=== PATIENT | female | born 1960 | race Two or more races ===

== ENCOUNTER 2017-09-21 21:40 | Inpatient (IN) | payer MEDICARE ==
[~2017-09-21] VITALS: Ht 160 cm; Wt 95.3 kg
[2017-09-21] MEDS ORDERED: MAGNESIUM HYDROXIDE 30 ML UDC PO PRN (23:00)
[2017-09-21] MEDS ORDERED: ACETAMINOPHEN 325 MG TABLET PO PRN (23:00)
[2017-09-21] MEDS ORDERED: MAG HYDROX/AL HYDROX/SIMETH 30 ML UDC PO PRN (23:00)
[2017-09-21] MEDS ORDERED: LORAZEPAM 0.5 MG TABLET PO PRN (23:00)
[2017-09-21] MEDS ORDERED: SERT100T12 (23:27)
[2017-09-21] MEDS ORDERED: BENZ2TAB7 (23:27)
[2017-09-21] MEDS ORDERED: MELO-105 (23:27)
[2017-09-21] MEDS ORDERED: PROP10TA68 (23:27)
[2017-09-21] MEDS ORDERED: HALO5TAB8 (23:27)
[2017-09-21] MEDS ORDERED: BENZ0.5T43 (23:27)
[2017-09-21] MEDS ORDERED: LURA40TA PO (23:31)
[2017-09-21] MEDS: TEMAZEPAM 7.5 MG CAPSULE PO PRN (23:43)
[2017-09-22 00:07] VITALS: BP 140/78
--- NOTE | 2017-09-22 00:23 | NUR ---
ADMISSION NOTES ADMITTED THIS 57 Y/O FEMALE PATIENT ADMIT FROM [facility]/ , PT. INTIALLY CAME FROM HOME. PT IS ON 5150 HOLD FOR GD ,DTS , PER HOLD PT. ENDORSE SUCIDIAL IDEATION BY OVERDOSEING ON HER PILLS OR RUNNING INTO TRAFFIC, UPON FACE TO FACE ASSESSMENT PATIENT IS A&O X3,DEPRESSIVE,CALM COOPERTIVE AT THIS TIME , DENIES SI/ HI AT THIS TIME V/S WNL, NO ACUTE DISTRESS NOTED, HX OF BIPOLAR DISORDER ,ANXIETY, SCHIZOPHRENIA , DEPRESSION , MD AWARE AND NOTIFIED OF THE ADMISSION, SKIN INTACT, ENCOURAGED PT. VERBALIZED ANY FEELING CONCERN TO STAFF, ORIENT TO UNIT POLICY, WILL CONTINUE TO MONITOR FOR Q15 SAFETY AND BEHAVIOR.
[2017-09-22 06:50] LABS: ALBUMIN 2.9 g/dL (3.4-5.0); BILIRUBIN,TOTAL 0.7 mg/dL (0.2-1.0); CALCIUM, SERUM 8.8 mg/dL (8.5-10.1); CREATININE 0.5 mg/dL (0.6-1.3); POTASSIUM 3.9 mmol/L (3.5-5.1)
[2017-09-22 07:09] LABS: CHOLESTEROL 147 mg/dL (<200); HDL CHOLESTEROL 52 mg/dL (40-60); LDL 86 mg/dL (0-99); TRIGLYCERIDES 75 mg/dL (30-150)
[2017-09-22 08:00] VITALS: BP 104/54
--- NOTE | 2017-09-22 14:30 | NUR ---
GPS/RN-NOTES IRMA FRANK SEEN THE PATIENT TODAY AND MADE AWARE TO RECONCILE THE MEDICATIONS.
[2017-09-22 16:00] VITALS: BP 115/63
[2017-09-22 20:05] VITALS: BP 119/67
[2017-09-22] MEDS: TRAZODONE 50 MG TABLET PO SCH (21:18)
[2017-09-23 08:00] VITALS: BP 126/85
[2017-09-23] MEDS: PANTOPRAZOLE 40 MG TABLET.DR PO SCH (08:04)
[2017-09-23] MEDS: BENZTROPINE MESYLATE (1 MG) 1 MG TABLET PO SCH ×2 (08:36→16:12)
[2017-09-23] MEDS: MELOXICAM 7.5 MG TABLET PO SCH (08:36)
[2017-09-23] MEDS: HALOPERIDOL 5 MG TABLET PO SCH ×2 (08:36→16:12)
[2017-09-23] MEDS: SERTRALINE HCL 50 MG TABLET PO SCH (08:36)
[2017-09-23] MEDS: PROPRANOLOL HCL 10 MG TABLET PO SCH ×2 (08:37→16:12)
--- NOTE | 2017-09-23 12:08 | NUR ---
INITIAL DISCHARGE PLAN: Pt will return home to [address] [place] [address] . JOSE F contacted pts Akil [phone] who confirmed. JOSE F will help form a safe and proper discharge in collaboration with .
[2017-09-23 16:05] VITALS: BP 104/75
[2017-09-23 20:00] VITALS: BP 126/69
[2017-09-23] MEDS: TRAZODONE 50 MG TABLET PO SCH (21:41)
[2017-09-23] MEDS: TEMAZEPAM 7.5 MG CAPSULE PO PRN (21:41)
[2017-09-24 08:11] VITALS: BP 125/84
[2017-09-24] MEDS: MELOXICAM 7.5 MG TABLET PO SCH (08:38)
[2017-09-24] MEDS: BENZTROPINE MESYLATE (1 MG) 1 MG TABLET PO SCH (08:38)
[2017-09-24] MEDS: HALOPERIDOL 5 MG TABLET PO SCH (08:38)
[2017-09-24 08:39] VITALS: BP 125/84
[2017-09-24] MEDS: PROPRANOLOL HCL 10 MG TABLET PO SCH (08:39)
[2017-09-24] MEDS: PANTOPRAZOLE 40 MG TABLET.DR PO SCH (08:39)
[2017-09-24] MEDS: SERTRALINE HCL 50 MG TABLET PO SCH (08:39)
--- NOTE | 2017-09-24 09:28 | NUR ---
RN-CO: DR LEE ORDERED TO DISCONTINUE HOLD AND DISCHARGE PATIENT TODAY.
--- NOTE | 2017-09-24 14:30 | NUR ---
GPS/RN NO SI OR HI AT THE TIME OF D/C. BELONGINGS/VALUABLES RETURNED AND SIGNED FOR. SKIN CLEAR ON D/C. EXIT CARE INSTRUCTIONS, PRESCRIPTIONS GIVEN UND UNDERSTOOD.PT IS AMBULATORY, TAXI ARRANGED BY JOSE F. PT HAS KEYS/ACCESS TO HER HOME. PT ACCOMPANIED TO THE LOBBY BY THE DIRECTOR OF INDIVIDUAL GIVING.
--- NOTE | 2017-09-24 15:14 | NUR ---
DISCHARGE NOTE: Pt was discharged at 2:30pm home to [address] [place], [place] [id number] [facility] [address]. [phone]. Pt will be transported home via [employer] self pay. Pts Akil [phone] has been notified and agrees to discharge plan. Pts appeared in a happy mood with congruent affect. Pt was calm and cooperative and denied suicidal/homicidal ideations and denied visual/auditory hallucinations. SW scheduled follow up appointment with Psychiatrist: Dr. Luzmaria Bravo [address] [facility] [id number] on September 27, 2017 at 11:00am. Pt will also schedule a follow up appointment with Merchandise Examiner: Dr. Deepak Robert [address] [facility] [id number] . The multidisciplinary exitcare form was done, printed, signed, and given to the patient.
== END 2017-09-24 14:30 | disposition home or self-care (01) | DRG 885 ==
LOC: GPS 22:24
PROVIDERS: ADMIT Psychiatry & Neurology Psychiatry; ATTEND Psychiatry & Neurology Psychiatry
DX: F25.9 Schizoaffective disorder, unspecified (principal); R45.851 Suicidal ideations; E44.0 Moderate protein-calorie malnutrition; F29 Unspecified psychosis not due to a substance or known physiological condition; F41.9 Anxiety disorder, unspecified; Z98.51 Tubal ligation status; Z90.710 Acquired absence of both cervix and uterus; Z90.49 Acquired absence of other specified parts of digestive tract; F43.10 Post-traumatic stress disorder, unspecified; Z72.0 Tobacco use; F31.9 Bipolar disorder, unspecified; Z91.5 Personal history of self-harm
CPT/HCPCS: 36415; 80053-TC; 80061-TC; 87081-TC